=== PATIENT | female | born 1985 | race Caucasian/White ===

== ENCOUNTER 2018-06-29 15:02 | Day surgery (SDC) | payer OTHER, MEDICAID ==
[~2018-06-29 15:02] MED LIST: CEFAZOLIN 2 GM/50 ML (PMX) 50 ML IVPB; LACTATED RINGER'S 1,000 ML IV*
[2018-06-29 16:03] LABS: ADD MAN DIFF? NO
[2018-06-29 16:05] LABS: BASOPHILS % 0.3 % (0.0-2.0); EOSINOPHILS # 0.1 10^3/ul (0.0-0.5); HEMATOCRIT 31.6 % (37.0-47.0); HEMOGLOBIN 9.7 g/dl (12.0-16.0); LYMPHOCYTES # 3.3 10^3/ul (0.8-2.9); LYMPHOCYTES % 36.4 % (15.0-51.0); MEAN CORPUSCULAR HEMOGLOBIN 24.2 pg (29.0-33.0); MEAN CORPUSCULAR HGB CONC 30.7 g/dl (32.0-37.0); MEAN CORPUSCULAR VOLUME 78.8 fl (82.0-101.0); MEAN PLATELET VOLUME 9.6 fl (7.4-10.4); MONOCYTE # 0.5 10^3/ul (0.3-0.9); MONOCYTES % 5.9 % (0.0-11.0); NEUTROPHILS % 56.3 % (39.0-77.0); PLATELET COUNT 354 10^3/UL (140-415); RED BLOOD COUNT 4.01 10^6/ul (4.20-5.40); RED CELL DISTRIBUTION WIDTH 14.8 % (11.5-14.5)
[2018-06-29 16:10] LABS: HOLD TRANSMISSIONS 1
[2018-06-29 16:22] LABS: ALANINE AMINOTRANSFERASE 14 IU/L (13-69); ALBUMIN/GLOBULIN RATIO 1.17; ALKALINE PHOSPHATASE 55 IU/L (42-121); ANION GAP 8 (5-13); ASPARTATE AMINO TRANSFERASE 18 IU/L (15-46); BILIRUBIN,INDIRECT 0.1 mg/dl (0-1.1); BILIRUBIN,TOTAL 0.1 mg/dl (0.2-1.3); BLOOD UREA NITROGEN 9 mg/dl (7-20); CALCIUM 8.8 mg/dl (8.4-10.2); CARBON DIOXIDE 27 mmol/L (21-31); CHLORIDE 107 mmol/L (97-110); CREATININE 0.56 mg/dl (0.44-1.00); Estimated GFR > 60 mL/min (>60); GLUCOSE 141 mg/dl (70-220); POTASSIUM 3.9 mmol/L (3.5-5.1); SODIUM 142 mmol/L (135-144); TOTAL PROTEIN 7.4 g/dl (6.1-8.1)
[2018-06-29 16:24] LABS: INR 0.99; PROTIME 13.2 Sec (11.9-14.9)
[2018-06-29] MEDS ORDERED: CEFAZOLIN 1 GM INJ (16:48)
[2018-06-29] MEDS ORDERED: PROPOFOL 20 ML ×2 (16:48→17:00)
[2018-06-29] MEDS ORDERED: ONDANSETRON 4 MG INJ (16:48)
[2018-06-29] MEDS ORDERED: FENTAnyl 50 MCG/ML VIAL ×2 (16:48→16:59)
[2018-06-29] MEDS ORDERED: MIDAZOLAM 1 MG/ML 2 ML INJ (16:48)
[2018-06-29] MEDS ORDERED: METOCLOPRAMIDE 10 MG INJ (16:48)
[2018-06-29] MEDS ORDERED: KETOROLAC 30 MG INJ (16:49)
[2018-06-29] MEDS ORDERED: DIPHENHYDRAMINE 50 MG INJ IV (17:00)
[2018-06-29] MEDS ORDERED: OXYCODONE/ACETAMINOPHEN (5/325) TAB PO (17:00)
[2018-06-29] MEDS ORDERED: MEPERIDINE 25 MG INJ IV (17:00)
[2018-06-29] MEDS ORDERED: HYDROmorphONE 1 MG/5 ML IV SYRINGE IV ×3 (17:00)
[2018-06-29] MEDS: BUPIVACAINE 0.5% (SDV) 30 ML INJ (17:03)
[2018-06-29] MEDS ORDERED: EPHEDrine SULFATE 50 MG/5 ML SYG (17:51)
[2018-06-29] MEDS: OXYCODONE/ACETAMINOPHEN (5/325) TAB PO (18:49)
[2018-06-29] MEDS: ONDANSETRON 4 MG INJ IV (18:50)
== END 2018-06-29 19:20 | disposition home or self-care (01) ==
LOC: SDS 15:02
DX: M24.541 Contracture, right hand (principal); M25.641 Stiffness of right hand, not elsewhere classified
CPT/HCPCS: 26455; 71045; 80053; 82962; 85025; 85610; 85730; 93005